=== PATIENT | male | born 1985 | race Caucasian/White ===

== ENCOUNTER 2020-11-13 18:30 | Emergency (ER) | payer SELFPAY ==
[~2020-11-13 18:30] MED LIST: BACTRIM DS TAB1 EACH PO; BUPRENORPHIN-N1 EACH SL; CYCLOBENZAPRINE10 MG PO; IBUPROFEN600 MG PO; PHENERGAN 12.12.5 M1 PO
== END 2020-11-13 19:30 | disposition left against medical advice (07) ==
LOC: ER1 18:30
DX: Z53.21 Procedure and treatment not carried out due to patient leaving prior to being seen by health care provider (principal)